=== PATIENT | female | born 1970 | race Caucasian/White ===

== ENCOUNTER 2020-11-03 19:10 | Emergency (ER) | payer MEDICAID ==
[~2020-11-03] VITALS: Ht 154.9 cm; Wt 59.0 kg
[2020-11-03 19:13] VITALS: BP_SYST 115
[2020-11-03] MEDS ORDERED: LORazepam 1 MG TABLET PO ONE ×2 (19:15→20:45)
[2020-11-03] MEDS ORDERED: levETIRAcetam 500 MG TABLET PO ONE (19:15)
[2020-11-03] MEDS ORDERED: LORazepam 1 MG TABLET ONE ×2 (19:25→20:45)
[2020-11-03 20:07] LABS: BASOPHILS # (AUTO) 0.1 K/uL (0.0-0.2); BASOPHILS % (AUTO) 0.7 % (0.0-2.0); EOSINOPHILS # (AUTO) 0.3 K/uL (0.0-0.4); EOSINOPHILS % (AUTO) 3.2 % (0.0-4.0); HEMATOCRIT 41.5 % (36-48); LYMPHOCYTES # (AUTO) 4.1 K/uL (1.0-5.5); LYMPHOCYTES % (AUTO) 42.8 % (20.5-51.5); MEAN CORPUSCULAR HEMOGLOBIN 31 pg (27-31); MEAN CORPUSCULAR HGB CONC 34 % (32-36); MEAN CORPUSCULAR VOLUME 90 fL (79.0-98.0); MONOCYTES % (AUTO) 10.6 % (1.7-9.3); NEUTROPHILS # (AUTO) 4.1 K/uL (1.8-7.7); NEUTROPHILS % (AUTO) 42.7 % (40.0-70.0); PLATELET COUNT (AUTO) 452 K/uL (130-430); RED CELL DISTRIBUTION WIDTH 15.1 % (9.0-15.0); WHITE BLOOD COUNT (AUTO) 9.5 K/uL (4.8-10.8)
[2020-11-03 20:56] LABS: ANION GAP 10 (5-15); ASPARTATE AMINOTRANSFERASE 52 U/L (10-37); CALCIUM 9.3 mg/dL (8.4-11.0); CHLORIDE 105 mmol/L (98-107); CREATININE 0.74 mg/dL (0.55-1.30); GFR AFRICAN AMERICAN 108 mL/min (>90); GLUCOSE 97 mg/dL (70-99); SODIUM SERUM 140 mmol/L (136-145); TOTAL BILIRUBIN 0.5 mg/dL (0.0-1.0); UREA NITROGEN, BLOOD 11 mg/dL (8-21)
[2020-11-03 20:57] LABS: ALANINE AMINOTRANSFERASE 204 U/L (12-78); ALBUMIN 3.1 g/dL (3.4-4.8); ALCOHOL, BLOOD < 3 mg/dL (<10)
[2020-11-03 21:59] VITALS: BP_SYST 115
== END 2020-11-03 21:59 | disposition home or self-care (01) ==
LOC: SED 19:10
DX: R56.9 Unspecified convulsions (principal)
CPT/HCPCS: 36415; 80053; 85025; 99284; G0482